=== PATIENT | female | born 1935 | race Caucasian/White ===

== ENCOUNTER 2022-07-04 16:12 | Emergency (ER) | payer MEDICARE ==
[~2022-07-04] VITALS: Ht 147.3 cm; Wt 45.0 kg
[2022-07-04 16:21] VITALS: BP 124/45
== END 2022-07-04 18:07 | disposition home or self-care (01) ==
LOC: ER 16:14
DX: I95.9 Hypotension, unspecified (principal); Z00.00 Encounter for general adult medical examination without abnormal findings; I10 Essential (primary) hypertension; I25.2 Old myocardial infarction; I50.9 Heart failure, unspecified; E78.00 Pure hypercholesterolemia, unspecified; Z88.8 Allergy status to other drugs, medicaments and biological substances; I11.0 Hypertensive heart disease with heart failure
CPT/HCPCS: 99283

== ENCOUNTER 2023-08-02 10:23 | Emergency (ER) | payer MEDICARE ==
[~2023-08-02] VITALS: Ht 142.2 cm; Wt 44.7 kg
[~2023-08-02 10:23] MED LIST: ALBU18HF2 INH; AMLO2.5T5 PO; ATOR40TA72 PO; BUME1TAB8 PO; CETI10TA14 PO; IPRA3AMP9 NEB; LOSA25TA41 PO; METH-603 PO; METO25TA6 PO; PRED20TA PO; SPIR25TA5 PO; TIOT18CA3 INH
[2023-08-02 10:53] VITALS: TEMP 98.3
[2023-08-02 11:47] LABS: BILIRUBIN,URINE NEGATIVE (Neg); CLARITY,URINE SLIGHTLY CLOUDY (Clear); COLOR,URINE YELLOW (Yellow); GLUCOSE, URINE NEGATIVE (Neg); KETONES,URINE NEGATIVE (Neg); LEUKOCYTE ESTERASE ,URINE SMALL (Neg); NITRITES, URINE NEGATIVE (Neg); OCCULT BLOOD,URINE NEGATIVE (Neg); PROTEIN,URINE TRACE mg/dl (Neg); UROBILINOGEN,URINE 0.2 E.U/dL (0.2-1.0)
[2023-08-02 11:58] LABS: UA COLLECTION TYPE NON-SPECIFIED
[2023-08-02 11:59] LABS: SQUAMOUS EPITHELIAL CELL,UR FEW /LPF (FEW)
[2023-08-02 12:00] LABS: BACTERIA,URINE NONE SEEN /HPF (Neg); CAL OXALATE CRYSTALS 2+ /HPF (NEGATIVE); RBC,URINE 0-2 /HPF (0-2); TRANSITIONAL EPI CELLS,URINE FEW /HPF
[2023-08-02 12:56] LABS: BASOPHILS % (AUTO) 0.2 % (0-1); EOSINOPHILS # (AUTO) 0.1 X10'3 (0-0.9); EOSINOPHILS % (AUTO) 0.8 % (0-6); HEMATOCRIT 31.1 % (35.0-45.0); HEMOGLOBIN 10.2 g/dl (12.0-16.0); LYMPHOCYTES % (AUTO) 8.2 % (21-51); MEAN CORPUSCULAR HEMOGLOBIN 29.6 PG (27.0-31.0); MEAN CORPUSCULAR HGB CONC 32.6 g/dL (33.0-36.5); MEAN CORPUSCULAR VOLUME 90.6 FL (78-98); MEAN PLATELET VOLUME 6.9 FL (7.4-10.4); MONOCYTES # (AUTO) 1.2 X10'3 (0-0.9); MONOCYTES % (AUTO) 9.6 % (2-12); NEUTROPHILS # (AUTO) 9.9 X10'3 (1.8-7.7); NEUTROPHILS % (AUTO) 81.2 % (42-75); PLATELET COUNT 281 X10'3 (140-440); RED BLOOD COUNT 3.44 X10'6 (4.20-5.60); RED CELL DISTRIBUTION WIDTH 13.5 % (11.5-14.5); WHITE BLOOD COUNT 12.2 X10'3 (4.5-11.0)
[2023-08-02 13:05] LABS: ALANINE AMINOTRANSFERASE 35 U/L (12-78); ALBUMIN 3.3 G/DL (3.4-5.0); ALKALINE PHOSPHATASE 118 IU/L (46-116); ANION GAP 9 (8-16); ASPARTATE AMINO TRANSFERASE 27 U/L (10-37); BLOOD UREA NITROGEN 36 MG/DL (7-18); BUN/CREATININE RATIO 15.6 (10.0-20.0); CALCIUM 8.7 MG/DL (8.5-10.1); CHLORIDE 99 MMOL/L (99-107); CREATININE 2.31 MG/DL (0.40-0.90); GLUCOSE 102 MG/DL (70-104); POTASSIUM 3.6 MMOL/L (3.5-5.1); SODIUM 135 MMOL/L (135-145); TOTAL CARBON DIOXIDE 27.5 MMOL/L (24-32); TOTAL PROTEIN 6.7 G/DL (6.4-8.2); eCRCL 10 ML/MIN; eGFR 20 ML/MIN
[2023-08-02] MEDS ORDERED: CEPH-585 PO (14:53)
[2023-08-02 15:05] VITALS: BP 148/63; PULSE 88; RESP 20; O2SAT 96
== END 2023-08-02 15:00 | disposition home or self-care (01) ==
LOC: ER 10:24
DX: N39.0 Urinary tract infection, site not specified (principal); I11.0 Hypertensive heart disease with heart failure; I50.9 Heart failure, unspecified; E78.00 Pure hypercholesterolemia, unspecified; J44.9 Chronic obstructive pulmonary disease, unspecified; Z88.1 Allergy status to other antibiotic agents; Z88.5 Allergy status to narcotic agent; Z88.8 Allergy status to other drugs, medicaments and biological substances; Z79.899 Other long term (current) drug therapy; Z79.2 Long term (current) use of antibiotics
CPT/HCPCS: 36415; 74176; 80053; 81001; 83605; 85025; 87040; 87088; 99284; A4615

== ENCOUNTER 2023-09-07 12:15 | Emergency (ER) | payer MEDICARE ==
[~2023-09-07] VITALS: Ht 142.2 cm; Wt 45.5 kg
[2023-09-07 13:10] VITALS: BP 164/60; PULSE 64; RESP 16; TEMP 98.1; O2SAT 99
== END 2023-09-07 16:41 | disposition left against medical advice (07) ==
LOC: ER 12:16
DX: R07.81 Pleurodynia (principal); Z53.21 Procedure and treatment not carried out due to patient leaving prior to being seen by health care provider
CPT/HCPCS: 99281; A4314

== ENCOUNTER 2024-02-22 10:42 | Emergency (ER) | payer MEDICARE ==
[~2024-02-22] VITALS: Ht 142.2 cm; Wt 38.6 kg
[2024-02-22 11:29] LABS: BASOPHILS # (AUTO) 0.1 X10'3 (0-0.2); BASOPHILS % (AUTO) 0.5 % (0-1); EOSINOPHILS # (AUTO) 0.2 X10'3 (0-0.9); EOSINOPHILS % (AUTO) 1.6 % (0-6); HEMATOCRIT 27.8 % (35.0-45.0); HEMOGLOBIN 9.3 g/dl (12.0-16.0); LYMPHOCYTES # (AUTO) 0.6 X10'3 (1.1-4.8); LYMPHOCYTES % (AUTO) 5.4 % (21-51); MEAN CORPUSCULAR HEMOGLOBIN 30.6 PG (27.0-31.0); MEAN CORPUSCULAR HGB CONC 33.4 g/dL (33.0-36.5); MEAN CORPUSCULAR VOLUME 91.5 FL (78-98); MEAN PLATELET VOLUME 6.2 FL (7.4-10.4); MONOCYTES # (AUTO) 0.8 X10'3 (0-0.9); MONOCYTES % (AUTO) 7.4 % (2-12); NEUTROPHILS # (AUTO) 9.3 X10'3 (1.8-7.7); NEUTROPHILS % (AUTO) 85.1 % (42-75); PLATELET COUNT 431 X10'3 (140-440); RED BLOOD COUNT 3.04 X10'6 (4.20-5.60); RED CELL DISTRIBUTION WIDTH 13.1 % (11.5-14.5); WHITE BLOOD COUNT 10.9 X10'3 (4.5-11.0)
[2024-02-22 11:39] LABS: ALBUMIN 2.7 G/DL (3.4-5.0); ANION GAP 10 (8-16); BLOOD UREA NITROGEN 42 MG/DL (7-18); BUN/CREATININE RATIO 13.2 (10.0-20.0); CALCIUM 8.5 MG/DL (8.5-10.1); CHLORIDE 99 MMOL/L (99-107); CREATININE 3.18 MG/DL (0.40-0.90); GLUCOSE 100 MG/DL (70-104); POTASSIUM 4.5 MMOL/L (3.5-5.1); SODIUM 133 MMOL/L (135-145); TOTAL CARBON DIOXIDE 24.4 MMOL/L (24-32); eCRCL 7 ML/MIN; eGFR 14 ML/MIN
[2024-02-22 14:14] VITALS: TEMP 98.2
[2024-02-22] MEDS: normal saline 1000ML IV soln IVB ONE ×2 (14:29→16:37)
[2024-02-22] MEDS: ondansetron/PF 4mg/2ml inj IV ONE (14:49)
[2024-02-22 16:00] VITALS: BP 160/78; PULSE 93; RESP 20; O2SAT 95
[2024-02-22 16:30] LABS: BILIRUBIN,URINE NEGATIVE (Neg); CLARITY,URINE CLEAR (Clear); COLOR,URINE YELLOW (Yellow); GLUCOSE, URINE NEGATIVE (Neg); KETONES,URINE NEGATIVE (Neg); LEUKOCYTE ESTERASE ,URINE TRACE (Neg); NITRITES, URINE NEGATIVE (Neg); OCCULT BLOOD,URINE MODERATE (Neg); PROTEIN,URINE 30 mg/dl (Neg); UROBILINOGEN,URINE 0.2 E.U/dL (0.2-1.0)
[2024-02-22 16:39] LABS: UA COLLECTION TYPE CLN CATCH MIDSTREAM
[2024-02-22 16:40] LABS: BACTERIA,URINE NONE SEEN /HPF (Neg); MUCUS STRANDS NONE SEEN /LPF (Neg); RBC,URINE NONE SEEN /HPF (0-2); SQUAMOUS EPITHELIAL CELL,UR FEW /LPF (FEW); TRANSITIONAL EPI CELLS,URINE FEW /HPF; WBC,URINE 0-4 /HPF (0-4)
[2024-02-22] MEDS ORDERED: FERR-106 PO (16:53)
[2024-02-22] MEDS ORDERED: ESCI5TAB17 PO (16:53)
[2024-02-22] MEDS ORDERED: APIX2.5T PO (16:53)
[2024-02-22] MEDS ORDERED: CEPH-585 PO (16:55)
[2024-02-22] MEDS ORDERED: ONDA4TAB12 PO (16:55)
[2024-02-22] MEDS: CefTRIAXone/D5W-Rocephin 1gm 50 ML IV ONE (17:02)
[2024-02-26] MEDS ORDERED: ONDA4TAB12 PO (06:43)
== END 2024-02-22 18:29 | disposition home or self-care (01) ==
LOC: ER 10:43
DX: I13.2 Hypertensive heart and chronic kidney disease with heart failure and with stage 5 chronic kidney disease, or end stage renal disease (principal); N18.6 End stage renal disease; I50.9 Heart failure, unspecified; Z88.1 Allergy status to other antibiotic agents; Z79.899 Other long term (current) drug therapy; I25.10 Atherosclerotic heart disease of native coronary artery without angina pectoris; E78.00 Pure hypercholesterolemia, unspecified; I25.2 Old myocardial infarction; J44.9 Chronic obstructive pulmonary disease, unspecified
CPT/HCPCS: 36415; 71045; 80048; 81001; 83605; 84145; 85025; 87040; 87088; 96361; 96365; 96375; 99284; A4615; J0696; J2405; J7030

== ENCOUNTER 2024-02-25 21:35 | Inpatient (IN) | payer MEDICARE ==
[~2024-02-25] VITALS: Ht 142.2 cm; Wt 40.9 kg
[~2024-02-25 21:35] MED LIST changes: -AMLO2.5T5 PO; +APIX2.5T PO; -BUME1TAB8 PO; +CEPH-585 PO; +ESCI5TAB17 PO; +FERR-106 PO; -IPRA3AMP9 NEB; -LOSA25TA41 PO; +ONDA-243 PO; -PRED20TA PO; -SPIR25TA5 PO
[2024-02-25 22:22] LABS: BASOPHILS % (AUTO) 0.3 % (0-1); EOSINOPHILS # (AUTO) 0.1 X10'3 (0-0.9); EOSINOPHILS % (AUTO) 1.5 % (0-6); HEMATOCRIT 23.8 % (35.0-45.0); HEMOGLOBIN 7.7 g/dl (12.0-16.0); LYMPHOCYTES # (AUTO) 0.6 X10'3 (1.1-4.8); LYMPHOCYTES % (AUTO) 6.1 % (21-51); MEAN CORPUSCULAR HEMOGLOBIN 29.6 PG (27.0-31.0); MEAN CORPUSCULAR HGB CONC 32.3 g/dL (33.0-36.5); MEAN CORPUSCULAR VOLUME 91.8 FL (78-98); MEAN PLATELET VOLUME 6.1 FL (7.4-10.4); MONOCYTES % (AUTO) 10.1 % (2-12); NEUTROPHILS # (AUTO) 8.3 X10'3 (1.8-7.7); PLATELET COUNT 379 X10'3 (140-440); RED BLOOD COUNT 2.59 X10'6 (4.20-5.60); RED CELL DISTRIBUTION WIDTH 13.3 % (11.5-14.5); WHITE BLOOD COUNT 10.1 X10'3 (4.5-11.0)
[2024-02-25 22:41] LABS: ALBUMIN 2.2 G/DL (3.4-5.0); ANION GAP 11 (8-16); BLOOD UREA NITROGEN 40 MG/DL (7-18); BUN/CREATININE RATIO 13.3 (10.0-20.0); CALCIUM 7.9 MG/DL (8.5-10.1); CHLORIDE 102 MMOL/L (99-107); GLUCOSE 109 MG/DL (70-104); POTASSIUM 4.3 MMOL/L (3.5-5.1); PRO BRAIN NATRIURETIC PEPTIDE 24329 PG/ML (0-450); SODIUM 136 MMOL/L (135-145); TOTAL CARBON DIOXIDE 22.6 MMOL/L (24-32); eCRCL 8 ML/MIN; eGFR 15 ML/MIN
[2024-02-26] VITALS (10 sets, daily range): BP systolic 114–163; BP diastolic 63–77; PULSE 68–83; RESP 11–20; TEMP 96.7–97.6; O2SAT 96–100
[2024-02-26] MEDS ORDERED: magnesium 2GM in 50ml NS 50 ML IV PRN (03:40)
[2024-02-26] MEDS ORDERED: magnesium 4gm in 100ml NS 100 ML IV PRN (03:40)
[2024-02-26] MEDS ORDERED: magnesium Cl slow-release 64mg tablet PO PRN (03:40)
[2024-02-26] MEDS ORDERED: potassium Cl 40MEQ/1/2NS 520ml 520 ML IV PRN (03:40)
[2024-02-26] MEDS ORDERED: potassium Cl 20 mEq SR tablet PO PRN ×2 (03:40)
[2024-02-26] MEDS ORDERED: mag hydrox/Alum hydrox/simeth 30ml oral suspension PO PRN (03:40)
[2024-02-26] MEDS ORDERED: ondansetron/PF 4mg/2ml inj IV PRN (03:40)
[2024-02-26 05:07] LABS: MAGNESIUM 1.6 MG/DL (1.5-2.4); POTASSIUM 4.4 MMOL/L (3.5-5.1)
[2024-02-26] MEDS ORDERED: CEPH-194 (06:43)
[2024-02-26] MEDS ORDERED: ONDA-243 PO (06:43)
[2024-02-26] MEDS: K and/or MAG REPLACEMENT MC SCH (08:00)
[2024-02-26] MEDS: CefTRIAXone/D5W-Rocephin 1gm 50 ML IV SCH (08:56)
[2024-02-26] MEDS: pantoprazole 40 MG vial IV SCH (08:59)
[2024-02-26] MEDS: docusate sod 100mg capsule PO SCH (08:59)
[2024-02-26] MEDS: methylPREDNISolone sod succ 125mg/2ml vial IV SCH (09:01)
[2024-02-26] MEDS: azithromycin/NS 500mg/250ml 250 ML IV SCH (09:29)
[2024-02-26 10:41] LABS: % IRON SATURATION 16 % (11-46); IRON 19 UG/DL (49-151); TOTAL IRON BINDING CAPACITY 121 UG/DL (259-388)
[2024-02-26] MEDS: normal saline 500ml IV soln 500 ML IV ONE (11:52)
[2024-02-26] MEDS: ipratropium 0.5 MG/2.5ML nebule NEB SCH (14:00)
[2024-02-26] MEDS ORDERED: albuterol 2.5 MG/3 ML nebule NEB PRN (14:00)
[2024-02-26] MEDS: ipratropium/albuterol 3ml nebule NEB SCH (15:52)
[2024-02-26] MEDS: lactose-reduced food (Ensure Enlive) - 237ml bottle PO SCH (18:00)
[2024-02-26] MEDS: metoprolol tartrate 12.5mg (1/2 tablet) PO SCH (20:21)
[2024-02-27] VITALS (20 sets, daily range): BP systolic 128–157; BP diastolic 64–78; PULSE 71–96; RESP 14–22; TEMP 96.7–98.2; O2SAT 93–99
[2024-02-27] MEDS: acetaminophen 325mg tablet PO PRN (01:20)
[2024-02-27 06:35] LABS: BASOPHILS % (AUTO) 0.1 % (0-1); EOSINOPHILS % (AUTO) 0 % (0-6); HEMOGLOBIN 7.2 g/dl (12.0-16.0); LYMPHOCYTES # (AUTO) 0.2 X10'3 (1.1-4.8); LYMPHOCYTES % (AUTO) 3.3 % (21-51); MEAN CORPUSCULAR HEMOGLOBIN 30.1 PG (27.0-31.0); MEAN CORPUSCULAR HGB CONC 33.1 g/dL (33.0-36.5); MEAN CORPUSCULAR VOLUME 90.9 FL (78-98); MEAN PLATELET VOLUME 6.6 FL (7.4-10.4); MONOCYTES # (AUTO) 0.1 X10'3 (0-0.9); MONOCYTES % (AUTO) 2.1 % (2-12); NEUTROPHILS # (AUTO) 6.5 X10'3 (1.8-7.7); NEUTROPHILS % (AUTO) 94.5 % (42-75); PLATELET COUNT 321 X10'3 (140-440); RED BLOOD COUNT 2.38 X10'6 (4.20-5.60); RED CELL DISTRIBUTION WIDTH 13.2 % (11.5-14.5); WHITE BLOOD COUNT 6.9 X10'3 (4.5-11.0)
[2024-02-27 06:41] LABS: HEMATOCRIT 21.6 % (35.0-45.0)
[2024-02-27 06:47] LABS: APTT 33 SECONDS (22-32); INR 1.2 INR; PROTHROMBIN TIME 12.4 SECONDS (9.0-12.0)
[2024-02-27 06:58] LABS: ALANINE AMINOTRANSFERASE 21 U/L (12-78); ALBUMIN/GLOBULIN RATIO 0.5 (1.1-1.5); ALKALINE PHOSPHATASE 96 IU/L (46-116); ANION GAP 10 (8-16); ASPARTATE AMINO TRANSFERASE 17 U/L (10-37); BILIRUBIN,TOTAL 0.3 MG/DL (0.1-1.0); BLOOD UREA NITROGEN 41 MG/DL (7-18); BUN/CREATININE RATIO 13.4 (10.0-20.0); CALCIUM 7.6 MG/DL (8.5-10.1); CHLORIDE 105 MMOL/L (99-107); CREATININE 3.05 MG/DL (0.40-0.90); GLUCOSE 160 MG/DL (70-104); MAGNESIUM 1.6 MG/DL (1.5-2.4); PHOSPHORUS 4.1 MG/DL (2.3-4.5); POTASSIUM 4.6 MMOL/L (3.5-5.1); SODIUM 137 MMOL/L (135-145); TOTAL CARBON DIOXIDE 22.5 MMOL/L (24-32); eCRCL 8 ML/MIN; eGFR 15 ML/MIN
[2024-02-27] MEDS ORDERED: sodium ferric gluc complex inj 125 MG in normal saline 100ml IV soln 100 ML IV SCH (08:00)
[2024-02-27] MEDS: cetirizine 10mg tablet PO SCH (08:52)
[2024-02-27] MEDS: magnesium hydroxide 30ml (MOM) UD suspension PO PRN (08:52)
[2024-02-27] MEDS: atorvastatin 20mg tablet PO SCH (08:53)
[2024-02-27] MEDS: ferrous sulfate 325mg tablet PO SCH (08:54)
[2024-02-27] MEDS: ESCITALOPRAM 10 mg tablet 10 MG TABLET PO SCH (08:54)
[2024-02-27] MEDS: normal saline 1000ml 1,000 ML IV SCH (16:08)
[2024-02-27 18:24] LABS: HEMATOCRIT 28.2 % (35.0-45.0); HEMOGLOBIN 9.4 g/dl (12.0-16.0); MEAN CORPUSCULAR HEMOGLOBIN 29.9 PG (27.0-31.0); MEAN CORPUSCULAR HGB CONC 33.4 g/dL (33.0-36.5); MEAN CORPUSCULAR VOLUME 89.4 FL (78-98); MEAN PLATELET VOLUME 6.3 FL (7.4-10.4); PLATELET COUNT 373 X10'3 (140-440); RED BLOOD COUNT 3.16 X10'6 (4.20-5.60); RED CELL DISTRIBUTION WIDTH 13.7 % (11.5-14.5); WHITE BLOOD COUNT 11.7 X10'3 (4.5-11.0)
[2024-02-28] VITALS (22 sets, daily range): BP systolic 109–170; BP diastolic 59–90; PULSE 69–131; RESP 14–50; TEMP 97.1–98.5; O2SAT 91–100
[2024-02-28] MEDS: furosemide 20 MG/2 ML vial IV ONE ×2 (04:30→12:17)
[2024-02-28 05:05] LABS: ABG HCO3 19.1 mmol/L (22.0-26.0); ABG OXYGEN SATURATION 98.9 % (94-97); ABG PCO2 (T) 39.2 mmHg (32.0-45.0); ABG PH (T) 7.301 (7.350-7.450); ABG PO2 (T) 139.9 mmHg (75.0-100.0); ALLEN'S TEST POSITIVE; FCOHb 0.3 % (0.0-3.9); FHHb 1.1 % (0.0-5.0); FLOW 10 L/min; FMetHb 0.3 % (0.0-1.5); FO2Hb 98.3 % (94-97); MODE MASK - SIMPLE; PATIENT TEMPERATURE 35.9; TOTAL HEMOGLOBIN 10.9 G/dl (12.0-16.0)
[2024-02-28] MEDS: LORazepam 2 mg/ml vial IV ONE (05:25)
[2024-02-28 06:50] LABS: BASOPHILS % (AUTO) 0 % (0-1); EOSINOPHILS % (AUTO) 0 % (0-6); HEMOGLOBIN 9.1 g/dl (12.0-16.0); LYMPHOCYTES # (AUTO) 0.2 X10'3 (1.1-4.8); LYMPHOCYTES % (AUTO) 1.7 % (21-51); MEAN CORPUSCULAR HEMOGLOBIN 29.2 PG (27.0-31.0); MEAN CORPUSCULAR HGB CONC 32.5 g/dL (33.0-36.5); MEAN CORPUSCULAR VOLUME 90.1 FL (78-98); MEAN PLATELET VOLUME 6.6 FL (7.4-10.4); MONOCYTES # (AUTO) 0.4 X10'3 (0-0.9); MONOCYTES % (AUTO) 3.4 % (2-12); NEUTROPHILS # (AUTO) 12.1 X10'3 (1.8-7.7); NEUTROPHILS % (AUTO) 94.9 % (42-75); PLATELET COUNT 383 X10'3 (140-440); RED CELL DISTRIBUTION WIDTH 13.8 % (11.5-14.5); WHITE BLOOD COUNT 12.7 X10'3 (4.5-11.0)
[2024-02-28 06:58] LABS: APTT 27 SECONDS (22-32); INR 1.1 INR; PROTHROMBIN TIME 11.9 SECONDS (9.0-12.0)
[2024-02-28 07:16] LABS: ALANINE AMINOTRANSFERASE 23 U/L (12-78); ALBUMIN 2.2 G/DL (3.4-5.0); ALBUMIN/GLOBULIN RATIO 0.6 (1.1-1.5); ALKALINE PHOSPHATASE 98 IU/L (46-116); ANION GAP 14 (8-16); ASPARTATE AMINO TRANSFERASE 18 U/L (10-37); BILIRUBIN,TOTAL 0.3 MG/DL (0.1-1.0); BLOOD UREA NITROGEN 49 MG/DL (7-18); BUN/CREATININE RATIO 16.3 (10.0-20.0); CALCIUM 7.6 MG/DL (8.5-10.1); CHLORIDE 102 MMOL/L (99-107); CREATININE 3.01 MG/DL (0.40-0.90); GLUCOSE 155 MG/DL (70-104); MAGNESIUM 1.8 MG/DL (1.5-2.4); PHOSPHORUS 3.8 MG/DL (2.3-4.5); POTASSIUM 4.2 MMOL/L (3.5-5.1); SODIUM 136 MMOL/L (135-145); TOTAL CARBON DIOXIDE 20.3 MMOL/L (24-32); TOTAL PROTEIN 6.2 G/DL (6.4-8.2); eCRCL 8 ML/MIN; eGFR 15 ML/MIN
[2024-02-28] MEDS: lactulose 20gm/30ml cup PO SCH (13:00)
[2024-02-29] VITALS (18 sets, daily range): BP systolic 157–161; BP diastolic 71–77; PULSE 71–111; RESP 16–28; TEMP 97.5–98.1; O2SAT 88–99
[2024-02-29] MEDS: acetaminophen 325mg tablet PO PRN (00:35)
[2024-02-29 02:15] LABS: OCCULT BLOOD STOOL NEGATIVE (Neg)
[2024-02-29] MEDS ORDERED: hydrOXYzine 25 MG tablet PO PRN (02:25)
[2024-02-29] MEDS: hydrOXYzine 25 MG tablet PO PRN (02:39)
[2024-02-29] MEDS: LORazepam 0.5 MG tablet PO ONE (05:32)
[2024-02-29 07:57] LABS: BASOPHILS % (AUTO) 0.1 % (0-1); EOSINOPHILS % (AUTO) 0 % (0-6); HEMATOCRIT 26.6 % (35.0-45.0); HEMOGLOBIN 8.8 g/dl (12.0-16.0); LYMPHOCYTES # (AUTO) 0.3 X10'3 (1.1-4.8); LYMPHOCYTES % (AUTO) 2.3 % (21-51); MEAN CORPUSCULAR HEMOGLOBIN 29.5 PG (27.0-31.0); MEAN CORPUSCULAR HGB CONC 33.1 g/dL (33.0-36.5); MEAN PLATELET VOLUME 6.3 FL (7.4-10.4); MONOCYTES # (AUTO) 0.6 X10'3 (0-0.9); NEUTROPHILS # (AUTO) 10.3 X10'3 (1.8-7.7); NEUTROPHILS % (AUTO) 92.6 % (42-75); PLATELET COUNT 346 X10'3 (140-440); RED BLOOD COUNT 2.99 X10'6 (4.20-5.60); RED CELL DISTRIBUTION WIDTH 13.7 % (11.5-14.5); WHITE BLOOD COUNT 11.1 X10'3 (4.5-11.0)
[2024-02-29 08:07] LABS: APTT 27 SECONDS (22-32); INR 1.1 INR; PROTHROMBIN TIME 11.9 SECONDS (9.0-12.0)
[2024-02-29 08:17] LABS: ALANINE AMINOTRANSFERASE 28 U/L (12-78); ALBUMIN 2.2 G/DL (3.4-5.0); ALBUMIN/GLOBULIN RATIO 0.6 (1.1-1.5); ALKALINE PHOSPHATASE 91 IU/L (46-116); ANION GAP 15 (8-16); ASPARTATE AMINO TRANSFERASE 27 U/L (10-37); BILIRUBIN,TOTAL 0.3 MG/DL (0.1-1.0); BLOOD UREA NITROGEN 51 MG/DL (7-18); BUN/CREATININE RATIO 16.4 (10.0-20.0); CALCIUM 7.4 MG/DL (8.5-10.1); CHLORIDE 102 MMOL/L (99-107); CREATININE 3.11 MG/DL (0.40-0.90); GLUCOSE 129 MG/DL (70-104); MAGNESIUM 1.7 MG/DL (1.5-2.4); PHOSPHORUS 3.6 MG/DL (2.3-4.5); POTASSIUM 3.2 MMOL/L (3.5-5.1); SODIUM 139 MMOL/L (135-145); TOTAL CARBON DIOXIDE 22.5 MMOL/L (24-32); TOTAL PROTEIN 5.8 G/DL (6.4-8.2); eCRCL 7 ML/MIN; eGFR 14 ML/MIN
[2024-02-29] MEDS: pantoprazole 40mg Tablet.DR PO SCH (09:25)
[2024-02-29] MEDS ORDERED: POTASSIUM BICARB 20meq eff tab 20 MEQ TABLET.EFF PO PRN (15:40)
[2024-02-29 15:59] LABS: BILIRUBIN,URINE NEGATIVE (Neg); CLARITY,URINE CLEAR (Clear); COLOR,URINE STRAW (Yellow); GLUCOSE, URINE NEGATIVE (Neg); KETONES,URINE NEGATIVE (Neg); LEUKOCYTE ESTERASE ,URINE NEGATIVE (Neg); NITRITES, URINE NEGATIVE (Neg); OCCULT BLOOD,URINE LARGE (Neg); PROTEIN,URINE 30 mg/dl (Neg); UROBILINOGEN,URINE 0.2 E.U/dL (0.2-1.0)
[2024-02-29 16:00] LABS: UA COLLECTION TYPE FOLEY CATH
[2024-02-29 16:08] LABS: BACTERIA,URINE FEW /HPF (Neg); RBC,URINE TNTC /HPF (0-2); SQUAMOUS EPITHELIAL CELL,UR FEW /LPF (FEW); WBC,URINE 0-4 /HPF (0-4)
[2024-02-29] MEDS ORDERED: zolpidem 5mg tablet PO PRN (16:35)
[2024-02-29] MEDS: POTASSIUM BICARB 20meq eff tab 20 MEQ TABLET.EFF PO PRN (16:42)
[2024-02-29] MEDS: LORazepam 0.5 MG tablet PO PRN (17:23)
[2024-02-29] MEDS ORDERED: morphine 2 MG/ML inj. syringe IV PRN (19:20)
[2024-02-29] MEDS ORDERED: HYDROcodone/acetaminophen 5mg/325mg tablet PO PRN (19:25)
[2024-02-29] MEDS: methylPREDNISolone sod succ/PF 40mg inj. IV SCH (19:34)
[2024-02-29] MEDS: HYDROcodone/acetaminophen 10/325mg tab PO PRN (19:35)
[2024-02-29] MEDS: LORazepam 2 mg/ml vial ONE (21:44)
[2024-02-29] MEDS: albuterol 2.5 MG/3 ML nebule NEB PRN (21:49)
[2024-02-29] MEDS: furosemide 20 MG/2 ML vial IV ONE (21:59)
[2024-02-29] MEDS: furosemide 40mg/4ml inj ONE (21:59)
[2024-03-01] VITALS (10 sets, daily range): BP systolic 130–139; BP diastolic 80–100; PULSE 48–102; RESP 16–28; TEMP 96.8; O2SAT 90–97
[2024-03-01 05:54] LABS: BASOPHILS % (AUTO) 0.1 % (0-1); EOSINOPHILS % (AUTO) 0 % (0-6); HEMATOCRIT 29.7 % (35.0-45.0); HEMOGLOBIN 9.8 g/dl (12.0-16.0); LYMPHOCYTES # (AUTO) 0.3 X10'3 (1.1-4.8); LYMPHOCYTES % (AUTO) 2.1 % (21-51); MEAN CORPUSCULAR HEMOGLOBIN 29.5 PG (27.0-31.0); MEAN CORPUSCULAR VOLUME 89.3 FL (78-98); MEAN PLATELET VOLUME 6.5 FL (7.4-10.4); MONOCYTES # (AUTO) 0.8 X10'3 (0-0.9); NEUTROPHILS # (AUTO) 12.4 X10'3 (1.8-7.7); NEUTROPHILS % (AUTO) 91.8 % (42-75); PLATELET COUNT 379 X10'3 (140-440); RED BLOOD COUNT 3.32 X10'6 (4.20-5.60); RED CELL DISTRIBUTION WIDTH 13.7 % (11.5-14.5); WHITE BLOOD COUNT 13.5 X10'3 (4.5-11.0)
[2024-03-01 05:57] LABS: INR 1.1 INR; PROTHROMBIN TIME 11.8 SECONDS (9.0-12.0)
[2024-03-01 06:10] LABS: ALANINE AMINOTRANSFERASE 59 U/L (12-78); ALBUMIN 2.5 G/DL (3.4-5.0); ALBUMIN/GLOBULIN RATIO 0.6 (1.1-1.5); ALKALINE PHOSPHATASE 111 IU/L (46-116); ANION GAP 11 (8-16); ASPARTATE AMINO TRANSFERASE 54 U/L (10-37); BILIRUBIN,TOTAL 0.4 MG/DL (0.1-1.0); BLOOD UREA NITROGEN 51 MG/DL (7-18); BUN/CREATININE RATIO 15.5 (10.0-20.0); CALCIUM 7.7 MG/DL (8.5-10.1); CHLORIDE 99 MMOL/L (99-107); CREATININE 3.29 MG/DL (0.40-0.90); GLUCOSE 139 MG/DL (70-104); MAGNESIUM 1.9 MG/DL (1.5-2.4); POTASSIUM 3.9 MMOL/L (3.5-5.1); SODIUM 136 MMOL/L (135-145); TOTAL CARBON DIOXIDE 25.6 MMOL/L (24-32); TOTAL PROTEIN 6.4 G/DL (6.4-8.2); eCRCL 7 ML/MIN; eGFR 13 ML/MIN
[2024-03-01] MEDS: apixaban 2.5mg tablet PO SCH (07:27)
[2024-03-01] MEDS ORDERED: METH-603 PO ×2 (08:14)
[2024-03-01] MEDS ORDERED: LORazepam 2 mg/ml vial IV PRN (10:30)
[2024-03-01] MEDS ORDERED: acetaminophen 325mg tablet PO PRN (10:30)
[2024-03-01] MEDS ORDERED: docusate sod 100mg capsule PO SCH (20:00)
== END 2024-03-01 13:34 | DRG 291 ==
LOC: ER 21:36 → OBSVTOIN 02-26 03:44 → ED HOLD 02-26 03:44 → SUR 3N 02-26 07:30
PROVIDERS: ADMIT Family Medicine; ATTEND Family Medicine
PROC: 30233N1 Transfusion of Nonautologous Red Blood Cells into Peripheral Vein, Percutaneous Approach (ICD-10-PCS; principal; 2024-02-27)
DX: I13.2 Hypertensive heart and chronic kidney disease with heart failure and with stage 5 chronic kidney disease, or end stage renal disease (principal); I50.33 Acute on chronic diastolic (congestive) heart failure; J69.0 Pneumonitis due to inhalation of food and vomit; N18.6 End stage renal disease; J44.0 Chronic obstructive pulmonary disease with (acute) lower respiratory infection; D64.9 Anemia, unspecified; I48.91 Unspecified atrial fibrillation; Z20.822 Contact with and (suspected) exposure to COVID-19; Z66 Do not resuscitate; E78.00 Pure hypercholesterolemia, unspecified; E87.6 Hypokalemia; I25.10 Atherosclerotic heart disease of native coronary artery without angina pectoris; I34.0 Nonrheumatic mitral (valve) insufficiency; F03.90 Unspecified dementia, unspecified severity, without behavioral disturbance, psychotic disturbance, mood disturbance, and anxiety; I25.2 Old myocardial infarction; Z87.891 Personal history of nicotine dependence; Z88.1 Allergy status to other antibiotic agents; Z88.5 Allergy status to narcotic agent; Z88.8 Allergy status to other drugs, medicaments and biological substances
CPT/HCPCS: 36415; 36430; 36600; 71045; 71250; 74176; 80048; 80053; 81001; 82272; 82728; 82803; 83540; 83550; 83605; 83735; 83880; 84100; 84132; 84145; 84484; 85018; 85025; 85027; 85610; 85730; 86885; 86900; 86901; 86920; 87081; 87502; 87503; 87811; 92508; 92616; 93005; 93306; 94640; 94760; 94799; 97116; 97161; 97530; 99285; A4314; A4620; A6212; A6253; C1758; C9113; G0378; J0456; J0696; J1940; J2060; J2919; J7030; J7040; P9016; Q0177